=== PATIENT | male | born 2000 | race Caucasian/White ===

== ENCOUNTER 2024-07-10 01:05 | Emergency (ER) | payer MEDICAID ==
[~2024-07-10] VITALS: Ht 182.9 cm; Wt 125.9 kg
[2024-07-10 01:10] VITALS: O2SAT 99
[2024-07-10 01:51] LABS: BASOPHILS % 0.4 % (0.0-2.0); EOSINOPHILS % 1.6 % (0.0-5.0); HEMOGLOBIN. 16.1 g/dL (14.0-18.0); MEAN CORPUSCULAR HEMOGLOBIN 31.2 pg (28.0-32.0); MEAN CORPUSCULAR HGB CONC 33.5 g/dL (31.0-37.0); MONOCYTES % 11.1 % (2.0-8.0); NEUTROPHILS % 59.9 % (40.0-76.0); RED BLOOD CELL COUNT 5.17 mill/uL (4.7-6.1); RED CELL DISTRIBUTION WIDTH 14.2 % (11.6-14.6); WHITE BLOOD COUNT 7.7 x1000/uL (4.5-11.0)
[2024-07-10 01:52] LABS: CHLORIDE 103 mEq/L (98-107); SODIUM 139 mEq/L (136-145)
[2024-07-10 01:53] LABS: CARBON DIOXIDE 30 mEq/L (21-32)
[2024-07-10 01:54] LABS: DIFFERENTIAL COMMENT 1
[2024-07-10 01:57] LABS: CREATININE 0.9 mg/dL (0.6-1.3)
[2024-07-10 01:58] LABS: GLUCOSE 82 mg/dL (70-105); UREA NITROGEN BLOOD 12 mg/dL (9-23)
[2024-07-10 02:14] VITALS: BP 139/88; PULSE 61; RESP 16; TEMP 36.66960; O2SAT 100
[2024-07-10 03:13] LABS: PLATELET 304 x1000/uL (130-400)
== END 2024-07-10 21:40 | disposition home or self-care (01) ==
LOC: ER 01:05
DX: R55 Syncope and collapse (principal)
CPT/HCPCS: 36415; 71045; 80048; 85025; 93005; 99285